=== PATIENT | male | born 1955 | race Caucasian/White ===

== ENCOUNTER 2017-11-13 08:15 | Outpatient (CLI) | payer BC ==
[2017-11-13] MEDS ORDERED: BARIUM SULFATE 135 ML SUSP.RECON (E-Z-HD) PO ONE (08:49)
== END 2017-11-13 10:00 | disposition home or self-care (01) ==
LOC: SRD 08:15
PROVIDERS: ATTEND Otolaryngology Plastic Surgery within the Head & Neck
DX: K21.9 Gastro-esophageal reflux disease without esophagitis (principal)
CPT/HCPCS: 74220-TC